=== PATIENT | female | born 1975 | race Caucasian/White ===

== ENCOUNTER 2017-01-11 13:07 | Emergency (ER) | payer OTHER ==
[2017-01-11 13:15] VITALS: BP 146/90; PULSE 80; RESP 18; TEMP 98.4; O2SAT 98
--- NOTE | 2017-01-11 13:42 | EDPHY ---
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 She presents to the ED after her coworkers noted anisocoria earlier today. The patient became concerned and that prompted her visit to the emergency department. The patient denies any history of headache, neck pain, fall or trauma. She has had mild symptoms of vomiting and diarrhea for the past several days. She denies any recent antibiotic use or travel outside the [place]. The patient does report that she removed a scopolamine patch from the patient during her shift earlier today. The patient does have a history of chronic eye irritation from prior Lasix. She may have rubbed her eyes prior to arrival. REVIEW OF SYSTEMS: A comprehensive 10 point review of systems is otherwise negative aside from elements mentioned in the history of present illness. Source: Patient Exam Limitations: No limitations - Personal History LMP (Females 10-55): 1-7 Days Ago Current Tetanus/Diphtheria Vaccine: Yes - Medical/Surgical History Hx Asthma: No Hx Chronic Respiratory Disease: No Hx Diabetes: No Hx Cardiac Disease: No Hx Renal Disease: No Hx Cirrhosis: No Hx Alcoholism: No Hx HIV/AIDS: No Hx Splenectomy or Spleen Trauma: No Other PMH: denies - Social History Smoking Status: Never smoked - Physical Exam Exam: General Appearance: Alert, no distress Eyes: Mild left anisocoria noted ENT, Mouth: Mucous membranes moist Respiratory: There are no retractions, lungs are clear to auscultation Cardiovascular: Regular rate and rhythm Gastrointestinal: Abdomen is soft and nontender, no masses, bowel sounds normal Neurological: 5/5 strength all 4 extremities, cranial nerves 2-12 intact, sensation intact to light touch, Skin: Warm and dry, no rashes Musculoskeletal: Neck is supple nontender, no carotid bruit Extremities: symmetrical, full range of motion Constitutional: Initial Vital Signs Temperature (C) 36.9 C 01/11/17 13:12 Heart Rate 80 01/11/17 13:12 Respiratory Rate 18 01/11/17 13:12 Blood Pressure 146/90 H 01/11/17 13:12 O2 Sat (%) 98 01/11/17 13:12 O2 Delivery Mode Room Air Allergies/Adverse Reactions: No Known Allergies Allergy (Unverified 01/11/17 13:12) Home Medications: Medication Instructions Recorded NIACIN 01/11/17 VITAMIN D 01/11/17 Medical Decision Making ED Course/Re-evaluation: The patient presents to the ED with anisocoria likely secondary to scopolamine topical exposure in her left eye. At this point time I do not feel that any additional workup is indicated. I feel it is reasonable to have the patient return to the emergency department should she developed acute headache or additional neurologic symptoms. I believe her anisocoria will resolve by tomorrow. The patient has been referred to our on-call viscose department worker for any unresolved anisocoria. She is discharged home with customary aftercare instructions and return precautions. Departure - Departure Disposition: Home, Routine, Self-Care Clinical Impression: Anisocoria Condition: Good Instructions: Blurred Vision (ED) Additional Instructions: 1. Return to the ED for any severe headache, neck pain, numbness or weakness, worsening symptoms or other concerns. 2. I believe that the asymmetry noted in your pupil is secondary to an accidental scopolamine exposure at work. I expect your symptoms should resolve over the next day. 3. Please follow up with the viscose department worker you have been referred to for any unresolved symptoms. Referrals: Alejandro Dick MD [Medical Doctor] - As per Instructions
--- NOTE | 2017-01-11 13:42 | EDPHY ---
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 The patient became concerned and that prompted her visit to the emergency department. The patient denies any history of headache, neck pain, fall or trauma. She has had mild symptoms of vomiting and diarrhea for the past several days. She denies any recent antibiotic use or travel outside the [place]. The patient does report that she removed a scopolamine patch from the patient during her shift earlier today. The patient does have a history of chronic eye irritation from prior Lasix. She may have rubbed her eyes prior to arrival. REVIEW OF SYSTEMS: A comprehensive 10 point review of systems is otherwise negative aside from elements mentioned in the history of present illness. Source: Patient Exam Limitations: No limitations - Personal History LMP (Females 10-55): 1-7 Days Ago Current Tetanus/Diphtheria Vaccine: Yes - Medical/Surgical History Hx Asthma: No Hx Chronic Respiratory Disease: No Hx Diabetes: No Hx Cardiac Disease: No Hx Renal Disease: No Hx Cirrhosis: No Hx Alcoholism: No Hx HIV/AIDS: No Hx Splenectomy or Spleen Trauma: No Other PMH: denies - Social History Smoking Status: Never smoked - Physical Exam Exam: General Appearance: Alert, no distress Eyes: Mild left anisocoria noted ENT, Mouth: Mucous membranes moist Respiratory: There are no retractions, lungs are clear to auscultation Cardiovascular: Regular rate and rhythm Gastrointestinal: Abdomen is soft and nontender, no masses, bowel sounds normal Neurological: 5/5 strength all 4 extremities, cranial nerves 2-12 intact, sensation intact to light touch, Skin: Warm and dry, no rashes Musculoskeletal: Neck is supple nontender, no carotid bruit Extremities: symmetrical, full range of motion Constitutional: Initial Vital Signs Temperature (C) 36.9 C 01/11/17 13:12 Heart Rate 80 01/11/17 13:12 Respiratory Rate 18 01/11/17 13:12 Blood Pressure 146/90 H 01/11/17 13:12 O2 Sat (%) 98 01/11/17 13:12 O2 Delivery Mode Room Air Allergies/Adverse Reactions: No Known Allergies Allergy (Unverified 01/11/17 13:12) Home Medications: Medication Instructions Recorded NIACIN 01/11/17 VITAMIN D 01/11/17 Medical Decision Making ED Course/Re-evaluation: The patient presents to the ED with anisocoria likely secondary to scopolamine topical exposure in her left eye. At this point time I do not feel that any additional workup is indicated. I feel it is reasonable to have the patient return to the emergency department should she developed acute headache or additional neurologic symptoms. I believe her anisocoria will resolve by tomorrow. The patient has been referred to our on-call drop tester for any unresolved anisocoria. She is discharged home with customary aftercare instructions and return precautions. Departure - Departure Disposition: Home, Routine, Self-Care Clinical Impression: Anisocoria Condition: Good Instructions: Blurred Vision (ED) Additional Instructions: 1. Return to the ED for any severe headache, neck pain, numbness or weakness, worsening symptoms or other concerns. 2. I believe that the asymmetry noted in your pupil is secondary to an accidental scopolamine exposure at work. I expect your symptoms should resolve over the next day. 3. Please follow up with the drop tester you have been referred to for any unresolved symptoms. Referrals: Alejandro Dick MD [Medical Doctor] - As per Instructions
== END 2017-01-11 14:01 | disposition home or self-care (01) ==
DX: H57.02 Anisocoria (principal)

== ENCOUNTER → 2017-03-18 | Outpatient (CLI) | payer OTHER | LOC: BMCIMAGING 07:52 | PROVIDERS: ATTEND Internal Medicine | DX: Z12.31 Encounter for screening mammogram for malignant neoplasm of breast (principal) ==